=== PATIENT | female | born 1935 | race Two or more races ===

== ENCOUNTER 2022-04-06 22:25 | Inpatient (IN) | payer OTHER ==
[~2022-04-06] VITALS: Ht 167.6 cm; Wt 51.0 kg
[2022-04-06] MEDS ORDERED: ALBUTEROL SULF 2.5 MG/0.5ML(0.5%) NEB SOLN NEB ONE (23:00)
[2022-04-06] MEDS ORDERED: IPRATROPIUM BROM 0.5 MG/2.5ML INH SOL NEB ONE (23:00)
[2022-04-06] MEDS ORDERED: methylPREDNISolone SOD SUCC 125 MG/2 ML VL IV ONE (23:00)
[2022-04-06 23:02] LABS: Basophils # (auto) 0 10 ^3/uL (0-0.2); Mean Corpuscular Hemoglobin 35.6 pg (28.0-32.0); Neutrophils # (auto) 3.1 10 ^3/uL (1.6-8.6)
[2022-04-06 23:04] LABS: Basophils % (auto) 0.5 % (0.0-2.0); Eosinophils # (auto) 0.1 10 ^3/uL (0-0.8); Eosinophils % (auto) 2.7 % (0.0-7.0); Hematocrit 40.6 % (36.0-46.0); Hemoglobin 14.3 g/dL (12.2-16.2); Lymphocytes # (auto) 1.5 10 ^3/uL (0.4-5.4); Lymphocytes % (auto) 27.7 % (10.0-50.0); Mean Corpuscular Hgb Conc. 35.3 g/dL (32.0-36.0); Mean Corpuscular Volume 100.8 fL (80.0-100.0); Monocytes # (auto) 0.6 10 ^3/uL (0-1.3); Monocytes % (auto) 11.1 % (0.0-12.0); Nucleated Red Blood Cells % 0.1 %; Red Blood Cells 4.03 10^6/uL (4.0-5.20); White Blood Cell 5.3 10^3/uL (4.4-10.8)
[2022-04-06 23:25] LABS: Albumin 2.9 g/dL (3.4-5.0); BUN/Creatinine Ratio 27.9; Calcium 8.4 mg/dL (8.5-10.1); Potassium 3.5 mmol/L (3.5-5.1)
[2022-04-06 23:34] LABS: Bilirubin, Total 1.9 mg/dL (0.2-1.0); Total Protein 5.5 g/dL (6.4-8.2)
[2022-04-07] MEDS ORDERED: cefTRIAXone 1GM/50ML D5W 50 ML IV ONE (02:30)
[2022-04-07] MEDS ORDERED: AZITHROMYCIN 500MG/ 250ML 250 ML IV ONE (02:30)
[2022-04-07] MEDS ORDERED: ONDANSETRON HCL 4 MG/2 ML VIAL IV PRN (05:45)
[2022-04-07] MEDS ORDERED: ALBUTEROL SULF 2.5 MG/0.5ML(0.5%) NEB SOLN NEB PRN (05:45)
[2022-04-07] MEDS: LEVOTHYROXINE SODIUM 50 MCG TAB PO SCH (07:00)
[2022-04-07] MEDS: LISINOPRIL 5 MG TAB PO SCH (10:00)
[2022-04-07] MEDS: PANTOPRAZOLE 40 MG TAB PO SCH (10:00)
[2022-04-07] MEDS: ENOXAPARIN SOD 40 MG/0.4 ML SYRINGE SC SCH (14:24)
[2022-04-07 19:00] VITALS: BP 140/72
[2022-04-07] MEDS: SOD CHL 0.45% 1,000 ML IV SCH (20:36)
[2022-04-07] MEDS: cefTRIAXone 1GM/50ML D5W 50 ML IV SCH ×2 (21:00→22:16)
[2022-04-07 21:24] LABS: Urine Bacteria FEW /hpf (None Seen); Urine Blood 3+ /uL (Negative); Urine Budding Yeast OCCASIONAL /hpf (None Seen); Urine Mucus FEW (None Seen); Urine Specific Gravity 1.017 (1.001-1.035); Urine WBC 113 /hpf (0 - 5)
[2022-04-07 22:00] VITALS: BP 132/35
[2022-04-07] MEDS ORDERED: AZITHROMYCIN 500MG/ 250ML 250 ML IV SCH (22:00)
[2022-04-08] MEDS: SOD CHL 0.45% 1,000 ML IV SCH ×2 (00:15→12:12)
[2022-04-08 00:25] VITALS: BP 136/45
[2022-04-08] MEDS ORDERED: PANT40TA2 PO (00:41)
[2022-04-08] MEDS ORDERED: LEVO50TA7 PO (00:41)
[2022-04-08 05:00] VITALS: BP 128/39
[2022-04-08 05:12] LABS: Basophils # (auto) 0 10 ^3/uL (0-0.2); Basophils % (auto) 0.4 % (0.0-2.0); Eosinophils # (auto) 0.1 10 ^3/uL (0-0.8); Eosinophils % (auto) 0.9 % (0.0-7.0); Hemoglobin 13.5 g/dL (12.2-16.2); Lymphocytes # (auto) 0.4 10 ^3/uL (0.4-5.4); Lymphocytes % (auto) 5.7 % (10.0-50.0); Mean Corpuscular Hemoglobin 35.5 pg (28.0-32.0); Mean Corpuscular Hgb Conc. 35.4 g/dL (32.0-36.0); Mean Corpuscular Volume 100.3 fL (80.0-100.0); Monocytes # (auto) 0.9 10 ^3/uL (0-1.3); Monocytes % (auto) 13.2 % (0.0-12.0); Neutrophils # (auto) 5.5 10 ^3/uL (1.6-8.6); Neutrophils % (auto) 79.8 % (37.0-80.0); Red Blood Cells 3.79 10^6/uL (4.0-5.20); Red Cell Distribution Width 13.8 % (11.8-14.3); White Blood Cell 6.9 10^3/uL (4.4-10.8)
[2022-04-08 05:37] LABS: Albumin 2.8 g/dL (3.4-5.0); Calcium 8.2 mg/dL (8.5-10.1); Potassium 3.1 mmol/L (3.5-5.1)
[2022-04-08 05:41] LABS: BUN/Creatinine Ratio 32.7; Total Protein 5.2 g/dL (6.4-8.2)
[2022-04-08] MEDS: LEVOTHYROXINE SODIUM 50 MCG TAB PO SCH (06:49)
[2022-04-08 08:00] VITALS: BP 117/45
[2022-04-08] MEDS ORDERED: POTASSIUM EFFERVESENT TAB 25 MEQ GT ONE (09:30)
[2022-04-08] MEDS: PANTOPRAZOLE 40 MG TAB PO SCH (10:24)
[2022-04-08] MEDS: LISINOPRIL 5 MG TAB PO SCH (10:30)
[2022-04-08] MEDS: ENOXAPARIN SOD 40 MG/0.4 ML SYRINGE SC SCH (10:31)
[2022-04-08 12:00] VITALS: BP 107/36
[2022-04-08 22:14] VITALS: BP 118/38
[2022-04-09 05:00] VITALS: BP 119/46
[2022-04-09 05:08] LABS: Basophils # (auto) 0 10 ^3/uL (0-0.2); Eosinophils # (auto) 0.2 10 ^3/uL (0-0.8); Hematocrit 37.7 % (36.0-46.0); Monocytes # (auto) 0.6 10 ^3/uL (0-1.3); Neutrophils % (auto) 56.2 % (37.0-80.0)
[2022-04-09 05:11] LABS: Basophils % (auto) 0.5 % (0.0-2.0); Eosinophils % (auto) 5.4 % (0.0-7.0); Hemoglobin 13.1 g/dL (12.2-16.2); Lymphocytes # (auto) 0.8 10 ^3/uL (0.4-5.4); Lymphocytes % (auto) 21.6 % (10.0-50.0); Mean Corpuscular Hemoglobin 35.1 pg (28.0-32.0); Mean Corpuscular Hgb Conc. 34.8 g/dL (32.0-36.0); Mean Corpuscular Volume 100.8 fL (80.0-100.0); Monocytes % (auto) 16.3 % (0.0-12.0); Nucleated Red Blood Cells % 0.2 %; Red Blood Cells 3.74 10^6/uL (4.0-5.20); White Blood Cell 3.5 10^3/uL (4.4-10.8)
[2022-04-09 05:31] LABS: Calcium 8.2 mg/dL (8.5-10.1); Potassium 3.7 mmol/L (3.5-5.1)
[2022-04-09 05:34] LABS: BUN/Creatinine Ratio 35.7
[2022-04-09] MEDS: LEVOTHYROXINE SODIUM 50 MCG TAB PO SCH (06:49)
[2022-04-09] MEDS: SOD CHL 0.45% 1,000 ML IV SCH (07:10)
[2022-04-09 09:00] VITALS: BP 119/40
[2022-04-09] MEDS: PANTOPRAZOLE 40 MG TAB PO SCH (10:09)
[2022-04-09] MEDS: ENOXAPARIN SOD 40 MG/0.4 ML SYRINGE SC SCH (10:10)
[2022-04-09] MEDS: LISINOPRIL 5 MG TAB PO SCH (10:10)
[2022-04-09 13:00] VITALS: BP 117/44
[2022-04-09 17:00] VITALS: BP 124/49
[2022-04-09] MEDS: D5W 5% 1,000 ML IV SCH ×2 (19:25→23:20)
[2022-04-09 21:31] VITALS: BP 121/44
[2022-04-10] MEDS: cefTRIAXone 1GM/50ML D5W 50 ML IV SCH ×2 (00:06→22:00)
[2022-04-10] MEDS: ACETAMINOPHEN 325 MG TAB PO PRN ×3 (00:17→23:10)
[2022-04-10] MEDS: LEVOTHYROXINE SODIUM 50 MCG TAB PO SCH (06:32)
[2022-04-10 06:51] LABS: Basophils # (auto) 0 10 ^3/uL (0-0.2); Basophils % (auto) 0.7 % (0.0-2.0); Eosinophils # (auto) 0.2 10 ^3/uL (0-0.8); Hematocrit 38.1 % (36.0-46.0); Hemoglobin 13.4 g/dL (12.2-16.2); Lymphocytes # (auto) 0.5 10 ^3/uL (0.4-5.4); Lymphocytes % (auto) 11.9 % (10.0-50.0); Mean Corpuscular Hemoglobin 35.7 pg (28.0-32.0); Mean Corpuscular Hgb Conc. 35.1 g/dL (32.0-36.0); Mean Corpuscular Volume 101.5 fL (80.0-100.0); Monocytes # (auto) 0.6 10 ^3/uL (0-1.3); Monocytes % (auto) 14.7 % (0.0-12.0); Neutrophils # (auto) 2.8 10 ^3/uL (1.6-8.6); Neutrophils % (auto) 67.7 % (37.0-80.0); Nucleated Red Blood Cells % 0.5 %; Red Blood Cells 3.75 10^6/uL (4.0-5.20); Red Cell Distribution Width 13.9 % (11.8-14.3); White Blood Cell 4.1 10^3/uL (4.4-10.8)
[2022-04-10 07:02] LABS: INR 1.31 (0.9-1.15)
[2022-04-10 07:03] LABS: BUN/Creatinine Ratio 27.7; Calcium 8.2 mg/dL (8.5-10.1); Potassium 3.5 mmol/L (3.5-5.1)
[2022-04-10 09:00] VITALS: BP 112/42
[2022-04-10] MEDS: ENOXAPARIN SOD 40 MG/0.4 ML SYRINGE SC SCH (11:33)
[2022-04-10] MEDS: PANTOPRAZOLE 40 MG TAB PO SCH (11:33)
[2022-04-10] MEDS: LISINOPRIL 5 MG TAB PO SCH (11:41)
[2022-04-10 13:00] VITALS: BP 117/44
[2022-04-10 17:14] VITALS: BP 110/47
[2022-04-10] MEDS ORDERED: HYDR-4902 PO (18:47)
[2022-04-10 22:00] VITALS: BP 104/34
[2022-04-11] VITALS (7 sets, daily range): BP systolic 95–133; BP diastolic 28–47
[2022-04-11] MEDS: LEVOTHYROXINE SODIUM 50 MCG TAB PO SCH (06:37)
[2022-04-11 07:20] LABS: Basophils # (auto) 0 10 ^3/uL (0-0.2); Lymphocytes # (auto) 0.5 10 ^3/uL (0.4-5.4); Monocytes # (auto) 0.6 10 ^3/uL (0-1.3); Neutrophils # (auto) 2.3 10 ^3/uL (1.6-8.6); White Blood Cell 3.7 10^3/uL (4.4-10.8)
[2022-04-11 07:23] LABS: Basophils % (auto) 0.9 % (0.0-2.0); Eosinophils # (auto) 0.3 10 ^3/uL (0-0.8); Eosinophils % (auto) 6.9 % (0.0-7.0); Hematocrit 38.7 % (36.0-46.0); Hemoglobin 13.4 g/dL (12.2-16.2); Lymphocytes % (auto) 14.4 % (10.0-50.0); Mean Corpuscular Hemoglobin 34.8 pg (28.0-32.0); Mean Corpuscular Hgb Conc. 34.6 g/dL (32.0-36.0); Mean Corpuscular Volume 100.7 fL (80.0-100.0); Monocytes % (auto) 16.3 % (0.0-12.0); Neutrophils % (auto) 61.5 % (37.0-80.0); Nucleated Red Blood Cells % 0.1 %; Red Blood Cells 3.85 10^6/uL (4.0-5.20)
[2022-04-11 08:12] LABS: BUN/Creatinine Ratio 29.8; Calcium 8.8 mg/dL (8.5-10.1); Potassium 3.9 mmol/L (3.5-5.1)
[2022-04-11] MEDS: LISINOPRIL 5 MG TAB PO SCH (08:32)
[2022-04-11] MEDS: ENOXAPARIN SOD 40 MG/0.4 ML SYRINGE SC SCH (08:32)
[2022-04-11] MEDS: PANTOPRAZOLE 40 MG TAB PO SCH (08:32)
[2022-04-11] MEDS: cefTRIAXone 1GM/50ML D5W 50 ML IV SCH (19:58)
[2022-04-11] MEDS: HYDROcodone-ACET 5/325MG TAB PO PRN (19:59)
[2022-04-12 05:00] VITALS: BP 124/48
[2022-04-12] MEDS: LEVOTHYROXINE SODIUM 50 MCG TAB PO SCH (06:16)
[2022-04-12 06:25] LABS: Basophils # (auto) 0 10 ^3/uL (0-0.2); Eosinophils # (auto) 0.2 10 ^3/uL (0-0.8); Lymphocytes # (auto) 0.8 10 ^3/uL (0.4-5.4); Monocytes # (auto) 0.6 10 ^3/uL (0-1.3); White Blood Cell 3.6 10^3/uL (4.4-10.8)
[2022-04-12 06:28] LABS: Basophils % (auto) 1.3 % (0.0-2.0); Eosinophils % (auto) 6.3 % (0.0-7.0); Hematocrit 36.5 % (36.0-46.0); Lymphocytes % (auto) 22.7 % (10.0-50.0); Mean Corpuscular Hgb Conc. 35.7 g/dL (32.0-36.0); Neutrophils # (auto) 1.9 10 ^3/uL (1.6-8.6); Neutrophils % (auto) 53.7 % (37.0-80.0); Nucleated Red Blood Cells % 0.1 %; Red Blood Cells 3.61 10^6/uL (4.0-5.20); Red Cell Distribution Width 13.7 % (11.8-14.3)
[2022-04-12 06:30] LABS: Potassium 4.3 mmol/L (3.5-5.1)
[2022-04-12 06:36] LABS: BUN/Creatinine Ratio 30.6; Calcium 8.6 mg/dL (8.5-10.1)
[2022-04-12] MEDS ORDERED: ALBUTEROL MEDNEB 2.5 mg/3ml NEB ONE (08:33)
[2022-04-12] MEDS: PANTOPRAZOLE 40 MG TAB PO SCH (08:59)
[2022-04-12 09:00] VITALS: BP 113/47
[2022-04-12] MEDS: LISINOPRIL 5 MG TAB PO SCH (09:00)
[2022-04-12] MEDS: ENOXAPARIN SOD 40 MG/0.4 ML SYRINGE SC SCH (09:00)
[2022-04-12] MEDS: HYDROcodone-ACET 5/325MG TAB PO PRN ×2 (11:46→21:46)
[2022-04-12 13:00] VITALS: BP 123/36
[2022-04-12 16:33] VITALS: BP 113/30
[2022-04-12] MEDS: CIPROFLOXACIN HCL 500 MG TAB PO SCH (21:45)
[2022-04-12 22:00] VITALS: BP 115/43
[2022-04-13 04:37] VITALS: BP 129/43
[2022-04-13 05:14] LABS: Eosinophils # (auto) 0.2 10 ^3/uL (0-0.8); Monocytes # (auto) 0.5 10 ^3/uL (0-1.3); Monocytes % (auto) 14.9 % (0.0-12.0); Neutrophils # (auto) 1.6 10 ^3/uL (1.6-8.6); White Blood Cell 3.5 10^3/uL (4.4-10.8)
[2022-04-13 05:17] LABS: Basophils # (auto) 0 10 ^3/uL (0-0.2); Basophils % (auto) 1.1 % (0.0-2.0); Eosinophils % (auto) 6.6 % (0.0-7.0); Lymphocytes # (auto) 1.1 10 ^3/uL (0.4-5.4); Lymphocytes % (auto) 30.6 % (10.0-50.0); Mean Corpuscular Hemoglobin 35.2 pg (28.0-32.0); Mean Corpuscular Hgb Conc. 35.1 g/dL (32.0-36.0); Mean Corpuscular Volume 100.4 fL (80.0-100.0); Neutrophils % (auto) 46.8 % (37.0-80.0); Nucleated Red Blood Cells % 0.1 %; Red Blood Cells 3.68 10^6/uL (4.0-5.20); Red Cell Distribution Width 13.7 % (11.8-14.3)
[2022-04-13 05:29] LABS: Calcium 8.4 mg/dL (8.5-10.1); Potassium 4.2 mmol/L (3.5-5.1)
[2022-04-13 05:31] LABS: BUN/Creatinine Ratio 37.8
[2022-04-13] MEDS: LEVOTHYROXINE SODIUM 50 MCG TAB PO SCH (06:39)
[2022-04-13 07:37] VITALS: BP 124/49
[2022-04-13] MEDS: CIPROFLOXACIN HCL 500 MG TAB PO SCH (09:48)
[2022-04-13] MEDS: ENOXAPARIN SOD 40 MG/0.4 ML SYRINGE SC SCH (09:48)
[2022-04-13] MEDS: LISINOPRIL 5 MG TAB PO SCH (09:48)
[2022-04-13] MEDS: PANTOPRAZOLE 40 MG TAB PO SCH (09:48)
[2022-04-13] MEDS ORDERED: CIP500T PO (09:50)
[2022-04-13] MEDS: HYDROcodone-ACET 5/325MG TAB PO PRN (11:14)
[2022-04-13 11:55] VITALS: BP 123/36
[2022-04-13 12:35] VITALS: BP 123/36
== END 2022-04-13 14:22 | disposition home or self-care (01) | DRG 70 ==
LOC: EDBD 22:25 → ER 22:25 → OVERFLOW 04-07 05:45 → CENTRAL 04-07 21:35
PROVIDERS: ADMIT Nurse Practitioner; ATTEND Student in an Organized Health Care Education/Training Program
DX: G93.41 Metabolic encephalopathy (principal); J18.9 Pneumonia, unspecified organism; J96.01 Acute respiratory failure with hypoxia; E44.0 Moderate protein-calorie malnutrition; R17 Unspecified jaundice; Z68.1 Body mass index [BMI] 19.9 or less, adult; E87.0 Hyperosmolality and hypernatremia; J98.11 Atelectasis; I10 Essential (primary) hypertension; Z20.822 Contact with and (suspected) exposure to COVID-19; D69.6 Thrombocytopenia, unspecified; E03.9 Hypothyroidism, unspecified; E86.0 Dehydration; N30.90 Cystitis, unspecified without hematuria
CPT/HCPCS: 36415; 70450; 71045; 80048; 80053; 81001; 83036; 83605; 84484; 85025; 85610; 87040; 87086; 87088; 87186; 87426; 93005; 96365; 96366; 96367; 96372; 97110; 97116; 97163; 97530; G0378; J0696

== ENCOUNTER 2022-08-17 07:53 | Emergency (ER) | payer OTHER ==
[~2022-08-17] VITALS: Ht 147.3 cm; Wt 46.2 kg
[~2022-08-17 07:53] MED LIST: CIP500T PO; HYDR-4902 PO; LEVO50TA7 PO; LINE1TAB5 PO; PANT40TA2 PO
[2022-08-17 08:33] VITALS: BP 140/49
[2022-08-17] MEDS ORDERED: ERTAPENEM SOD INJ 1 GM in SODIUM CHL 0.9% 50 ML IV ONE (09:30)
== END 2022-08-17 14:19 | disposition left against medical advice (07) ==
LOC: ER 07:53
DX: R53.1 Weakness (principal); M79.604 Pain in right leg; M79.605 Pain in left leg; N39.0 Urinary tract infection, site not specified; Z53.21 Procedure and treatment not carried out due to patient leaving prior to being seen by health care provider
CPT/HCPCS: 99281; J1335

== ENCOUNTER 2022-08-18 07:41 | Emergency (ER) | payer OTHER ==
[~2022-08-18] VITALS: Ht 147.3 cm; Wt 46.3 kg
[2022-08-18] MEDS ORDERED: ERTAPENEM SOD INJ 1 GM in SODIUM CHL 0.9% 50 ML IV ONE (08:15)
[2022-08-18 10:18] VITALS: BP 128/38
== END 2022-08-18 10:35 | disposition home or self-care (01) ==
LOC: ER 07:41
DX: T82.898A Other specified complication of vascular prosthetic devices, implants and grafts, initial encounter (principal); Z79.899 Other long term (current) drug therapy
CPT/HCPCS: 96365; 99285; J1335

== ENCOUNTER 2022-09-06 09:56 | Emergency (ER) | payer OTHER ==
[~2022-09-06] VITALS: Ht 147.3 cm; Wt 47.0 kg
[2022-09-06 10:50] VITALS: BP 135/59
== END 2022-09-06 12:14 | disposition left against medical advice (07) ==
LOC: ER 09:56
DX: T82.898A Other specified complication of vascular prosthetic devices, implants and grafts, initial encounter (principal); Z53.21 Procedure and treatment not carried out due to patient leaving prior to being seen by health care provider